=== PATIENT | female | born 1975 | race Caucasian/White ===

== ENCOUNTER 2020-03-08 16:52 | Outpatient (CLI) | payer BC, SELFPAY ==
[2020-03-08 17:41] LABS: TSH (W/Ref FT4) 1.34 uIU/mL (0.36-3.74)
[2020-03-10 18:29] LABS: Estradiol 33 pg/mL (See Note)
[2020-03-11 10:06] LABS: FSH 9.1 mIU/mL (See Note)
[2020-03-11 10:13] LABS: Prolactin 8.3 ng/mL (See Table)
== END 2020-03-08 17:12 ==
PROVIDERS: Nurse Practitioner Family; PCP Specialist; Visit Provider Specialist
DX: Z31.41 Encounter for fertility testing (principal)
CPT/HCPCS: 82670; 83001; 84146; 84443

== ENCOUNTER 2020-03-12 02:22 | Outpatient (CLI) | payer BC, SELFPAY | END 2020-03-12 02:42 | PROVIDERS: Visit Provider Specialist | DX: R69 Illness, unspecified (principal) ==

== ENCOUNTER 2020-04-04 01:57 | Outpatient (CLI) | payer BC, SELFPAY ==
[2020-04-05 15:32] LABS: COVID-19 RT-PCR UVMMC Result Negative (Negative)
== END 2020-04-04 01:58 | disposition home or self-care (01) ==
LOC: LBO 01:58
PROVIDERS: PCP Nurse Practitioner Family; Visit Provider Obstetrics & Gynecology Reproductive Endocrinology
DX: Z20.822 Contact with and (suspected) exposure to COVID-19 (principal); Z01.818 Encounter for other preprocedural examination
CPT/HCPCS: U0003

== ENCOUNTER 2020-05-07 03:32 | Outpatient (CLI) | payer BC, SELFPAY ==
[2020-05-10 12:00] LABS: CMV IgG Antibody Negative (See Note)
== END 2020-05-07 03:33 | disposition home or self-care (01) ==
LOC: LBO 03:32
PROVIDERS: PCP Nurse Practitioner Family; Visit Provider Obstetrics & Gynecology Reproductive Endocrinology
DX: Z01.84 Encounter for antibody response examination (principal)
CPT/HCPCS: 36415; 86644

== ENCOUNTER 2021-05-05 16:14 | Outpatient (CLI) | payer BC, SELFPAY ==
--- NOTE | 2021-05-05 | DI.RAD_ITS ---
Exam(s) XR HAND RT COMPLETE EXAM: XR HAND RT COMPLETE CLINICAL HISTORY: SWELLING RT FINGER R22.31, AND WARMTH ALONG POINTER FINGER RT HAND. TECHNIQUE: 2D digital imaging was performed. COMPARISON: No exams were available for comparison FINDINGS: BONES: No acute fracture is present. No bony destructive lesion is seen. JOINTS: No dislocation present. SOFT TISSUE: Soft tissue swelling of index finger. No abnormal gas collection or foreign body. IMPRESSION: soft tissue swelling of the index finger. DATA REPOSITORY: RADIATION DOSE DELIVERED:
== END 2021-05-05 16:34 ==
PROVIDERS: PCP Nurse Practitioner Family; Visit Provider Nurse Practitioner Family
DX: R22.31 Localized swelling, mass and lump, right upper limb (principal)
CPT/HCPCS: 73130

== ENCOUNTER 2021-12-17 01:35 | Outpatient (CLI) | payer BC, SELFPAY ==
--- NOTE | 2021-12-17 07:30 | DI.MRI_ITS ---
Exam(s) MR IAC BRAIN WO/W EXAM: MR IAC BRAIN WO/W CLINICAL HISTORY: INABILTIY TO UNDERSTAND SPEECH LT EAR,ABNL ADITORY PERCEPTION,IMPAIRMENT OF TECHNIQUE: Multiplanar multisequence MRI of the brain was performed. Both noninfused and contrast i nfused sequences were performed. IV Contrast injected was 16 cc Dotarem. COMPARISON: No exams were available for comparison FINDINGS: CEREBRAL PARENCHYMA: No evidence of intracranial hemorrhage, mass effect nor shift of midline structu re. No extraaxial fluid collections. Ventricles are not enlarged nor shifted. There is no significant focal signal abnormality in the cerebellar hemispheres nor within the constance, m idbrain, and thalami. There is a solitary nonspecific FLAIR bright small focus of signal abnormality in the right anterior lobe white matter forceps, this measuring 3 millimeters and not associated with hemorrhage, surroundi ng edema, nor abnormal signal-restricted diffusion on DWI. No enhancement at this level. IAC'S: There is no evidence of mass in the cerebellopontine angles and no evidence of intracanalicula r acoustic neuroma. There is no abnormal intra canalicular enhancement. There are no ring enhancing lesions in the brain. There is no abnormal meningeal enhancement. PITUITARY GLAND: No mass nor parasellar abnormality. No obvious abnormality in the cavernous sinuses. FLOW VOIDS: The expected flow void are noted. No evidence of obvious aneurysm nor obvious vascular ma lformation. PARANASAL SINUSES: The visualized paranasal sinuses appear unremarkable. ORBITS: No obvious abnormal findings. IMPRESSION: 1. No evidence of acoustic neuroma nor other lesions within the region of the internal auditory canal s, as per request. 2. No abnormal enhancing intracranial finding. 3. There is a solitary nonspecific small 3 millimeter focus of white matter signal abnormality in th e anterior right frontal lobe forceps white matter. This is nonhemorrhagic, nonenhancing, not associ ated with restricted diffusion. Recommend follow-up MRI scan in 1 year, earlier if clinically indicated. DATA REPOSITORY:
[2021-12-17] MEDS: Normal Saline Flush 10 ML SYR IVP (12:55)
== END 2021-12-17 01:55 ==
PROVIDERS: PCP Nurse Practitioner Family; Visit Provider Otolaryngology
DX: H93.292 Other abnormal auditory perceptions, left ear (principal)
CPT/HCPCS: 70553

== ENCOUNTER 2021-12-23 01:32 | Outpatient (CLI) | payer BC, SELFPAY ==
--- NOTE | 2021-12-23 10:15 | DI.RAD_ITS ---
Exam(s) XR SHOULDER RT COMPLETE 2+V EXAM: XR SHOULDER RT COMPLETE 2+V CLINICAL HISTORY: TENDINITIS OF RT SHOULDER, M75.81; RT ELBOW PAIN, M25.521. TECHNIQUE: 2D digital imaging was performed. COMPARISON: No exams were available for comparison FINDINGS: Five views: No evidence of fracture but there is prominent calcification in the subacromial space which measures 2.0 cm wide by 0.5 cm thick consistent with calcific rotator cuff tendinitis-bursitis. The glenohume ral joint appears unremarkable. No degenerative changes. No subluxation. No osteophytes. AC joint also appears unremarkable. No evidence of obvious os acromiale. IMPRESSION: Calcific rotator cuff tendinitis-bursitis DATA REPOSITORY: RADIATION DOSE DELIVERED:
--- NOTE | 2021-12-23 10:15 | DI.RAD_ITS ---
Exam(s) XR ELBOW RT COMPLETE EXAM: XR ELBOW RT COMPLETE CLINICAL HISTORY: RT ELBOW JT PAIN, M25.521; EXACERBATED BY RECENT BLUNT TRAUMA TO ELBOW. TECHNIQUE: 2D digital imaging was performed. COMPARISON: No exams were available for comparison FINDINGS: 3 views No evidence of fracture or joint effusion. No swelling of the olecranon bursa. Radial head and neck appear unremarkable. Bone density. Epicondyles unremarkable. IMPRESSION: No significant osseous findings. No joint effusion. DATA REPOSITORY: RADIATION DOSE DELIVERED:
== END 2021-12-23 01:52 ==
PROVIDERS: PCP Nurse Practitioner Family; Visit Provider Nurse Practitioner Family
DX: M75.31 Calcific tendinitis of right shoulder (principal); M25.521 Pain in right elbow
CPT/HCPCS: 73030; 73080

== ENCOUNTER 2022-12-21 19:45 | Outpatient (REF) | payer BC, SELFPAY ==
[2022-12-21 20:00] LABS: Anion Gap 7.2 mmol/L (3-11); BUN 10 mg/dL (7-18); CO2 26.8 mmol/L (21.0-32.0); CREATININE 0.7 mg/dL (0.55-1.02); Calcium 8.7 mg/dL (8.5-10.1); Calculated LDL 79 mg/dL (<100); Chloride 106 mmol/L (98-107); Cholesterol 188 mg/dL (<200); Estimated GFR 108.62 (mL/min/1.73m2); Glucose 95 mg/dL (74-106); HDL Cholesterol 39 mg/dL (40-60); Potassium 3.8 mmol/L (3.5-5.1); Sodium 140 mmol/L (136-145); Triglyceride 354 mg/dL (<150)
== END 2022-12-21 19:46 | disposition home or self-care (01) ==
LOC: NCHCN 19:45
PROVIDERS: PCP Nurse Practitioner Family; Visit Provider Nurse Practitioner Family
DX: G43.909 Migraine, unspecified, not intractable, without status migrainosus (principal); Z13.1 Encounter for screening for diabetes mellitus; Z13.220 Encounter for screening for lipoid disorders; Z12.11 Encounter for screening for malignant neoplasm of colon; Z00.00 Encounter for general adult medical examination without abnormal findings
CPT/HCPCS: 80048; 80061

== ENCOUNTER → 2023-01-12 00:06 | Outpatient (CLI) | payer BC, SELFPAY ==
--- NOTE | 2023-01-12 12:50 | DI.MAMMO_ITS ---
Exam(s) MAMMO SCREENING EXAM: MAMMO SCREENING CLINICAL HISTORY: Z12.39 Screening TECHNIQUE: Mammograms were interpreted according to the usual protocol including computer analysis w [employer] CAD system, tomosynthesis and C-view imaging. COMPARISON: None FINDINGS: The breasts are composed of heterogeneously dense fibroglandular densities, Breast Density category C . No suspicious masses or suspicious microcalcifications are seen. No skin thickening or abnormal axillary lymph nodes are seen. IMPRESSION: BI-RADS Category 1, Negative mammogram. Yearly screening mammography is recommended. Breast Density Category C, heterogeneously Dense. The mammogram demonstrates the patient's breast tissue is dense. Dense breast tissue is very common a nd is not abnormal but dense breast tissue can make it harder to find cancer on a mammogram. Also, de nse breast tissue may increase breast cancer risk. This information about the result of the mammogram report was provided to the patient to raise their awareness. Use this report when you speak with the patient about their risks for breast cancer, which includes their family history. At that time, you may recommend additional screening tests (Ultrasound or MRI) as they might be useful based on their r isk. A negative radiographic report should not delay biopsy if a dominant or clinically suspicious mass is present. Up to ten percent of cancers are not identified on mammography. A negative report may reinforce clinical impression. Adenosis and dense breasts may obscure an underlying neoplasm. False positive reports average 6 to 10%.
== END ==
PROVIDERS: PCP Nurse Practitioner Family; Visit Provider Nurse Practitioner Family
DX: Z12.31 Encounter for screening mammogram for malignant neoplasm of breast (principal)
CPT/HCPCS: 77063; 77067

== ENCOUNTER 2023-12-29 19:38 | Outpatient (REF) | payer BC, SELFPAY ==
[2023-12-29 19:29] LABS: HCT 26.4 % (36.0-46.0); MCHC 26.5 % (32.0-36.0); Platelet Count 199 10^3/uL (130-400); RBC 3.67 10^6/uL (3.93-5.22); RDW-SD 49.4 fL; WBC 3.95 10^3/uL (4.4-10.8)
[2023-12-29 19:42] LABS: Iron 15 ug/dL (50-170); MCH 19.1 pg (27.0-33.0); MCV 72 fL (80-95); Total Iron Binding Capacity 485 ug/dL (250-450); Transferrin Sat 3 % (15-50)
[2023-12-29 19:51] LABS: ALT 20 U/L (14-59); AST 16 U/L (15-37); Albumin 3.8 g/dL (3.4-5.0); Alkaline Phosphatase 102 U/L (46-116); Anion Gap 11.6 mmol/L (3-11); BUN 9 mg/dL (7-18); Bilirubin, Total 0.42 mg/dL (0.2-1.0); CO2 26.4 mmol/L (21.0-32.0); CREATININE 0.6 mg/dL (0.55-1.02); Calcium 8.5 mg/dL (8.5-10.1); Chloride 104 mmol/L (98-107); Estimated GFR 112.04 (mL/min/1.73m2); Glucose 98 mg/dL (74-106); Potassium 3.7 mmol/L (3.5-5.1); Sodium 142 mmol/L (136-145); TSH 0.95 uIU/mL (0.36-3.74); Total Protein 7.4 g/dL (6.4-8.2)
== END 2023-12-29 19:39 | disposition home or self-care (01) ==
LOC: NCHCN 19:38
PROVIDERS: PCP Nurse Practitioner Family; Visit Provider Nurse Practitioner Family
DX: Z00.00 Encounter for general adult medical examination without abnormal findings (principal)
CPT/HCPCS: 80053; 85027; 83540; 83550; 84443

== ENCOUNTER 2024-01-14 00:42 | Outpatient (CLI) | payer BC, SELFPAY ==
--- NOTE | 2024-01-14 | DI.MAMMO_ITS ---
Exam(s) MAMMO SCREENING EXAM: MAMMO SCREENING CLINICAL HISTORY: SCREENING MAMMO Z12.31 TECHNIQUE: Mammograms were interpreted according to the usual protocol including computer analysis w [employer] CAD system, tomosynthesis and C-view imaging. COMPARISON: 2022 FINDINGS: The breasts are composed of heterogeneously dense fibroglandular densities, Breast Density category C . No suspicious masses or suspicious microcalcifications are seen. No skin thickening or abnormal axillary lymph nodes are seen. There has been no significant change from prior exams. IMPRESSION: BI-RADS Category 1, Negative mammogram. Yearly screening mammography is recommended. Breast Density Category C, heterogeneously Dense. The mammogram demonstrates the patient's breast tissue is dense. Dense breast tissue is very common a nd is not abnormal but dense breast tissue can make it harder to find cancer on a mammogram. Also, de nse breast tissue may increase breast cancer risk. This information about the result of the mammogram report was provided to the patient to raise their awareness. Use this report when you speak with the patient about their risks for breast cancer, which includes their family history. At that time, you may recommend additional screening tests (Ultrasound or MRI) as they might be useful based on their r isk. A negative radiographic report should not delay biopsy if a dominant or clinically suspicious mass is present. Up to ten percent of cancers are not identified on mammography. A negative report may reinforce clinical impression. Adenosis and dense breasts may obscure an underlying neoplasm. False positive reports average 6 to 10%.
== END 2024-01-14 01:02 ==
LOC: DI 00:42
PROVIDERS: PCP Nurse Practitioner Family; Visit Provider Nurse Practitioner Family
DX: Z12.31 Encounter for screening mammogram for malignant neoplasm of breast (principal); R92.323 Mammographic fibroglandular density, bilateral breasts; R92.333 Mammographic heterogeneous density, bilateral breasts
CPT/HCPCS: 77063; 77067

== ENCOUNTER 2024-01-28 01:07 | Outpatient (RCR) | payer BC, SELFPAY ==
[2024-01-14] MEDS: Normal Saline Flush 10 ML SYR IVP (13:22)
[2024-01-14] MEDS: IRON SUCROSE COMPLEX 300 MG in Normal Saline 250 ML 176.667 MG IVPB (13:22)
[2024-01-21] MEDS: IRON SUCROSE COMPLEX 300 MG in Normal Saline 250 ML 176.667 MG IVPB (13:22)
[2024-01-21] MEDS: Normal Saline Flush 10 ML SYR IVP (13:22)
[2024-01-28] MEDS: IRON SUCROSE COMPLEX 300 MG in Normal Saline 250 ML 176.667 MG IVPB (13:13)
[2024-01-28] MEDS: Normal Saline Flush 10 ML SYR IVP (14:30)
== END 2024-01-29 23:59 | disposition home or self-care (01) ==
LOC: INF 01:07
PROVIDERS: PCP Nurse Practitioner Family; Visit Provider Family Medicine
DX: D50.0 Iron deficiency anemia secondary to blood loss (chronic) (principal)
CPT/HCPCS: 96365; 96366; J1756

== ENCOUNTER 2024-02-11 01:10 | Outpatient (CLI) | payer BC, SELFPAY ==
[2024-02-11 15:42] LABS: MCHC 27.6 % (32.0-36.0); MCV 84 fL (80-95); MPV 11.3 fL (8.0-11.0); Platelet Count 224 10^3/uL (130-400); RBC 2.98 10^6/uL (3.93-5.22); RDW-SD 75.4 fL; WBC 3.98 10^3/uL (4.4-10.8)
[2024-02-11 15:48] LABS: HGB 6.9 g/dL (11.2-15.7)
[2024-02-11 16:02] LABS: MCH 23.2 pg (27.0-33.0); RDW 24.5 % (11.7-14.6)
[2024-02-11 16:27] LABS: ALT 16 U/L (14-59); AST 10 U/L (15-37); Albumin 3.7 g/dL (3.4-5.0); Alkaline Phosphatase 94 U/L (46-116); Anion Gap 9.3 mmol/L (3-11); BUN 11 mg/dL (7-18); Bilirubin, Total 0.22 mg/dL (0.2-1.0); CO2 26.7 mmol/L (21.0-32.0); CREATININE 0.7 mg/dL (0.55-1.02); Calcium 8.2 mg/dL (8.5-10.1); Chloride 107 mmol/L (98-107); Estimated GFR 107.95 (mL/min/1.73m2); Glucose 86 mg/dL (74-106); Potassium 3.5 mmol/L (3.5-5.1); Sodium 143 mmol/L (136-145); Total Protein 7.2 g/dL (6.4-8.2)
[2024-02-14 10:36] LABS: Cyclic Citrullinated Peptide <2.5 U/mL (<5.0)
[2024-02-14 11:32] LABS: Tissue Transglutaminase IgA <4.0 CU (<20.0)
== END 2024-02-11 01:11 | disposition home or self-care (01) ==
LOC: LBO 01:10
PROVIDERS: PCP Nurse Practitioner Family; Visit Provider Nurse Practitioner Family
DX: D50.9 Iron deficiency anemia, unspecified (principal); D64.9 Anemia, unspecified
CPT/HCPCS: 36415; 80053; 85027; 86200

== ENCOUNTER 2024-04-07 07:57 | Day surgery (SDC) | payer BC, SELFPAY ==
--- NOTE | 2024-04-06 14:13 | ANES.PREOP_ITS ---
General Info Date of Service Date Performed: 04/07/24 Height: 5 ft 3 in Weight: 68.492 kg Body Mass Index (BMI): 26.7 Surgical Procedure: Operation Date: 04/07/24 09:20 Proposed Procedure Side Surgeon tai Tanner MD Meds Allergies and Home Medications Allergies Allergy/AdvReac Type Severity Reaction Status Date / Time hornet venom Allergy Severe Other (See Verified 04/07/24 08:15 Comment) Home Medication ?Medication ?Instructions ?Recorded [id number] 250 1 tab PO ONCE 10/08/21 mg-250 mg-65 mg tablet (Excedrin Migraine) ibuprofen 600 mg tablet 600 mg PO Q8H PRN 10/08/21 acetaminophen 500 mg tablet 500 mg PO ONCE 04/07/24 (Tylenol Extra Strength) Current Visit Medications: Current Medications Generic Name Dose Route Start Last Admin Trade Name Freq PRN Reason Stop Dose Admin Ringer's Solution 1,000 mls @ 80 mls/hr 04/07/24 06:00 IV 04/07/24 23:59 INFUSION BAILEE IV Miscellaneous Supplies 1 each 04/07/24 06:00 Iv Access IV 04/07/24 23:59 DIRECTED BAILEE Sodium Chloride 0 ml 04/07/24 06:00 Normal Saline Flush 10 Ml Syr IV 04/07/24 23:59 PRN PRN Sodium Chloride 0 ml 04/07/24 06:00 Normal Saline 10 Ml Vial IJ 04/07/24 23:59 DIRECTED PRN Sterile Water 0 ml 04/07/24 06:00 Water,Injection,Sterile 10 Ml Vial IJ 04/07/24 23:59 DIRECTED PRN PFSH Active Problems Active Problems: Problem Status Onset Code Iron deficiency anemia due to chronic blood loss Acute D50.0 Migraine headache without aura Acute G43.009 Sensorineural hearing loss, unilateral, left ear, with unrestricted hearing on the contralateral side Acute H90.42 Right frontal lobe lesion Acute G93.9 Impairment of speech discrimination Acute H93.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 states this is relatred to irregular ovulation Migraine headache Tendinitis of right shoulder Hearing loss in left ear Surgical History Surgical History (Updated 02/07/25 @ 08:17 by Shanika Thakkar) History of surgery of uterus pt. says polyps removed x 2 History of tonsillectomy and adenoidectomy Tobacco Smoking/Tobacco Use Status: Never Alcohol Alcohol Intake: current Alcohol intake frequency: holidays/special occasions only Alcohol type: beer Substance Use Substance use: Never Substance use type: does not use Vital Signs and Lab Results Vital Signs Most Recent Vital Signs in EMR: Temp Pulse Resp BP Pulse Ox 36.4 C L 80 18 136/77 100 04/07/24 08:11 04/07/24 08:11 04/07/24 08:11 04/07/24 08:11 04/07/24 08:11 Lab Results Blood Type / Crossmatch: No Data to Display Complete Blood Count: No Data to Display Complete Metabolic Panel: No Data to Display Liver Function Panel: No Data to Display Coagulation Panel: No Data to Display Cardiac Panel: No Data to Display Arterial Blood Gas: No Data to Display Venous Blood Gas: No Data to Display Pancreas Panel: No Data to Display Thyroid Panel: No Data to Display Infectious Disease: No Data to Display Blood Cultures: No Data to Display Toxicology Panel: No Data to Display Panel: No Data to Display Anesthesia Assessment and Plan Anesthesia History Personal History: No History of Anesthesia Complications Family History: No Family History of Anesthesia Complications Exercise Tolerance Exercise Tolerance: Metabolic Equivalents>4 Cardiac & Pulmonary Exam Cardiac Exam: Normal S1/S2 Heart Sounds Pulmonary Exam: Clear Bilateral Breath Sounds Implantable Cardiac Device Does patient have a Pacemaker or an ICD?: No Airway Exam Known Difficult Airway: No Mallampati Class: 3 Mouth Opening: Narrow (< 3cm) Thyromental Distance: Less than 3 cm Neck Range of Motion: Full ROM Neck Circumference: Normal Teeth Condition: Normal Dentition ASA Classification ASA Score: ASA 2 Emergency Case?: No NPO Status NPO Status: NPO Clears >2 hours, Solids >8 hours Status Status: Negative HCG Anesthesia Plan Resuscitation Status: Full Code Anesthesia Technique: General Anesthesia Airway Planned: Natural Airway Monitors Used: Standard Monitors Preoperative Comments:: 48 yo female for colo. Sig PMHx: brain lesion (pt seems unaware of this. Has had appointment with [facility] who state no further workup is needed and her MRI is normal), migraine, anemia, never smoker, occ EtOH. Arrived today with a bottle of water and crackers (unopened). She is adamant about being appropriately NPO. Discussed risks of not being appropriately NPO (aspiration/), she states the water bottle was from last night and the crackers are for after and that she has not had anything to eat or drink today. States that she is hungry and has no reflux.
--- NOTE | 2024-04-06 19:05 | W.PM.DSUDISC ---
Date of service: 04/07/24 Discharge Plan Disposition Patient Disposition: Home Condition: Good Discharge Details Reason For Visit: screening colonsocopy Attending Provider: Kevin Tanner Primary Care Provider: NEGIN DE LA PAZ Home Meds and New Rx's Prescriptions: Continued Excedrin Migraine 250-250-65 mg tablet 1 tab PO ONCE ibuprofen 600 mg tablet 600 mg PO Q8H PRN Discontinued bisacodyl [Dulcolax (bisacodyl)] 5 mg tablet,delayed release (DR/EC) 5 mg PO ONCE Qty: 4 0RF Rx Instructions: Take per colonoscopy instructions provided by ordering providers office polyethylene glycol 3350 17 gram/dose powder 17 g PO ONCE Qty: 238 0RF Rx Instructions: Take per colonoscopy instructions provided by ordering providers office No Action acetaminophen [Tylenol Extra Strength] 500 mg tablet 500 mg PO ONCE Patient Comments: 1000 mg Discharge Instructions Additional Instructions: Crystal, I hope you are comfortable through the procedure today, and that you make a quick recovery. Everything looked normal along the length of your colonoscopy. I did not see any signs of tumors, polyps, or any other pathology. With minimal risk factors for colon cancers and a normal colonoscopy today, the recommendation for a follow-up screening colonoscopy will be 10 years. If you need anything or have any questions, please do not hesitate to ask. 1. If tolerated, consume a soft, low fiber diet for 1-2 days. 2[address] Do not drive, drink alcohol, operate machinery, make critical decisions, or do activities that require coordination or balance for 24 hours. 3. Because air was put into your colon during the procedure, expelling air from your rectum (passing gas or farting) is normal. 4. You may not have a bowel movement for 1-3 days because of the colonoscopy prep. This is normal. 5. Go directly to the emergency room if you notice any of the following: Develop chills (warm to touch), or if you have a thermometer and your temperature is above 101 Difficulty breathing or difficultly swallowing Persistent vomiting Severe abdominal pain, other than gas cramps Severe chest pain Black, tarry stools Any bleeding ? exceeding one tablespoon 6. Call your physician if the site where your intravenous was started becomes red, swollen, painful, and warm to touch. 7. Your physician has reviewed your pre-procedure medications. Please continue to take those medications as previously ordered. You will be given specific information/education regarding any changes to your medications before leaving. Activity:: Activity as Tolerated Diet:: As Tolerated Discharge Orders Discharge Orders: Discharge Order (Routine); Ordered 04/06/24 Ordered By: Kevin Tanner DS: Diagnosis Discharge Diagnosis (1) Encounter for screening colonoscopy: Status: Acute Asessment and Plan: Negative screening colonoscopy
--- NOTE | 2024-04-06 19:06 | COLE_ITS ---
Date of service: 04/07/24 Time of Service: 09:45 Colonoscopy Report Date of procedure: 04/07/24 Pre-op diagnosis general: screening colonoscopy Post-op diagnosis procedure note: other (Negative screening colonoscopy) Procedure: colonoscopy Surgeon: Kevin Tanner Anesthesia Type: General:No Airway Estimated blood loss (mL): 0 Pathology: none sent Complications: None Disposition: same day Indications: Robyn is a 48 year old woman who needs her first screening colonoscopy Prep: Miralax/Dulcolax Procedure Start Time: 09:20 Procedure End Time: 09:37 Retraction Time: 10 Findings: Normal colonoscopy Procedure Description: After the induction of anesthesia, and with the patient in left lateral decubitus position, I began by performing an external anorectal exam.? Perineum and skin were normal, as was the anal verge.? There was no evidence of external hemorrhoids.? Next, I performed a digital rectal exam.? I did not appreciate any abnormal findings.? Next, I advanced a colonoscope into the rectal vault.? I performed retroflexion.? This appeared normal.? Using insufflation, I then advanced the colonoscope beyond the rectal folds and into the sigmoid colon before advancing towards the cecum.? The quality of the prep was outstanding.? The scope was noted to be in the cecum by identification of the ileocecal valve and appendiceal orifice.? I then began withdrawing the colonoscope using repeated irrigation as necessary for full evaluation of the colonic mucosa. ?Once the scope was withdrawn to the level of the rectum, great care was taken to examine portions of the rectal folds.? Finally, the scope was withdrawn and the patient was brought to the same-day surgery recovery unit as the anesthetic wore off. ?The findings and instructions were shared with the patient prior to discharge. Galloway Bowel Prep Galloway Bowel Prep Right Colon: 3 Left Colon: 3 Transverse Colon: 3 Total Score: 9
[2024-04-07 08:11] VITALS: BP 136/77; PULSE 80; RESP 18; TEMP 36.4; O2SAT 100
[2024-04-07] MEDS: Lactated Ringers 1,000 ML 80 ML IV (08:30)
[2024-04-07 09:04] VITALS: BMI 26.7
[2024-04-07 09:45] VITALS: BP 121/58; PULSE 72; RESP 16; TEMP 36.6; O2SAT 99
--- NOTE | 2024-04-07 09:53 | W.ANESPOSTOP ---
Postoperative Evaluation Date, Time and Location Date Performed: 04/07/24 Time Performed: 09:53 Patient Location: Day Surgery Unit Vital Signs Most Recent Imported Vital Signs: Most Recent Vital Signs Temp Pulse Resp BP Pulse Ox 36.6 C 72 16 121/58 L 99 04/07/24 09:45 04/07/24 09:45 04/07/24 09:45 04/07/24 09:45 04/07/24 09:45 Pain Score Most Recent Pain Score: Most Recent Pain Score Pain Level 0 04/07/24 09:45 Assessment Mental Status: Awake (Alert & Oriented to Patient Baseline) Airway and Respiratory Function: Patent airway with normal (patient baseline) respiratory exam Cardiovascular Function: Hemodynamically Stable Hydration Status: Adequately Hydrated Nausea & Vomiting: No Nausea or Vomiting Pain: Pt. Denies Any Pain Peripheral Nerve Block: Patient did not receive a nerve block
[2024-04-07 10:08] VITALS: BP 112/54; PULSE 66; RESP 16; TEMP 36.5; O2SAT 98
== END 2024-04-07 10:38 | disposition home or self-care (01) ==
LOC: SUR 07:58
PROVIDERS: PCP Nurse Practitioner Family; Visit Provider Surgery
PROC: 0DJD8ZZ Inspection of Lower Intestinal Tract, Via Natural or Artificial Opening Endoscopic (ICD-10-PCS; CPT 45378; principal; 2024-04-07 09:15)
DX: Z12.11 Encounter for screening for malignant neoplasm of colon (principal); D50.0 Iron deficiency anemia secondary to blood loss (chronic)
CPT/HCPCS: 45378; 81025; J2704

== ENCOUNTER 2024-04-20 16:23 | Outpatient (REF) | payer BC, SELFPAY ==
[2024-04-20 19:04] LABS: HCT 28.1 % (36.0-46.0); HGB 7.7 g/dL (11.2-15.7); MCH 20.5 pg (27.0-33.0); MCHC 27.4 % (32.0-36.0); MCV 75 fL (80-95); MPV 12.3 fL (8.0-11.0); Platelet Count 230 10^3/uL (130-400); RBC 3.75 10^6/uL (3.93-5.22); RDW 18.5 % (11.7-14.6); RDW-SD 49.3 fL; WBC 4.13 10^3/uL (4.4-10.8)
[2024-04-20 19:20] LABS: Iron 18 ug/dL (50-170); Total Iron Binding Capacity 410 ug/dL (250-450); Transferrin Sat 4 % (15-50)
[2024-04-20 19:29] LABS: Ferritin 2 ng/mL (8-252)
== END 2024-04-20 16:24 | disposition home or self-care (01) ==
LOC: NCHCN 16:23
PROVIDERS: PCP Nurse Practitioner Family; Visit Provider Nurse Practitioner Family
DX: D50.9 Iron deficiency anemia, unspecified (principal)
CPT/HCPCS: 85027; 82728; 83540; 83550